=== PATIENT | female | born 1960 | race African-American/Black ===

== ENCOUNTER 2016-10-14 10:24 | Emergency (ER) | payer OTHER ==
[~2016-10-14] VITALS: Ht 167.6 cm; Wt 98.0 kg
[~2016-10-14 10:24] MED LIST: BENICAR5 MG PO; Benadryl PO; LOFIBRA54 MG PO; Mevacor PO; NAPROSYN500 MG PO; PRINZIDE 20-121 EACH PO; TYLENOL PM1 CAPLET PO; ULTRAM50 MG PO; VICODIN,LORT1 TABLET PO; [UNRECOGNIZED DRUG - REMARK]; [UNRECOGNIZED DRUG - REMARK]; predniSONE PO
[2016-10-14] MEDS ORDERED: ULTRACET1 TABLET PO (12:36)
[2016-10-14 13:17] VITALS: BP 139/61
== END 2016-10-14 13:17 | disposition home or self-care (01) ==
LOC: EME 10:24
DX: M25.561 Pain in right knee (principal); Z72.0 Tobacco use
CPT/HCPCS: 73564; 93971; 99281; 99284

== ENCOUNTER → 2016-11-11 | Outpatient (CLI) | payer OTHER ==
[~2016-11-11] MED LIST changes: +ULTRACET1 TABLET PO
== END | disposition home or self-care (01) ==
LOC: CDC 14:36
DX: S83.231A Complex tear of medial meniscus, current injury, right knee, initial encounter (principal)
CPT/HCPCS: 93000